=== PATIENT | male | born 1995 ===

== ENCOUNTER 2020-06-14 20:02 | Emergency (ER) | payer OTHER ==
[~2020-06-14] VITALS: Ht 180.3 cm; Wt 102.1 kg
== END 2020-06-14 22:28 | disposition home or self-care (01) ==
LOC: ER 20:02
DX: S39.012A Strain of muscle, fascia and tendon of lower back, initial encounter (principal); X50.0XXA Overexertion from strenuous movement or load, initial encounter; Y93.89 Activity, other specified; Y92.69 Other specified industrial and construction area as the place of occurrence of the external cause; Y99.8 Other external cause status